=== PATIENT | female | born 1960 | race Caucasian/White ===

== ENCOUNTER 2023-11-30 10:24 | Emergency (ER) | payer OTHER ==
[~2023-11-30] VITALS: Ht 170.2 cm; Wt 68.1 kg
[2023-11-30 10:45] VITALS: PULSE 60; RESP 18; TEMP 97.5; O2SAT 96
[2023-11-30] MEDS: ACETAMINOPHEN 325 MG TAB PO ONE (10:50)
[2023-11-30] MEDS: MORPHINE SULFATE INJ 2 MG/ml SYRG IV ONE (10:50)
[2023-11-30] MEDS: MORPHINE SULFATE 4 MG/ML SYR/VIAL IV ONE (11:44)
[2023-11-30] MEDS: ONDANSETRON HCL 4 MG/2 ML VIAL IV ONE (11:44)
[2023-11-30 12:43] VITALS: BP 139/86; PULSE 65; RESP 12; O2SAT 99
[2023-11-30] MEDS ORDERED: HYDR-4902 PO ×3 (12:46→13:06)
== END 2023-11-30 13:06 | disposition home or self-care (01) ==
LOC: EDBD 10:24 → ER 10:24
DX: S42.421A Displaced comminuted supracondylar fracture without intercondylar fracture of right humerus, initial encounter for closed fracture (principal); S00.31XA Abrasion of nose, initial encounter; Z88.8 Allergy status to other drugs, medicaments and biological substances; W18.39XA Other fall on same level, initial encounter; Y93.89 Activity, other specified; Y92.89 Other specified places as the place of occurrence of the external cause; Y99.8 Other external cause status
CPT/HCPCS: 29105; 73030; 73060; 73080; 73090; 96374; 96375; 96376; 99284; J2270; J2405